=== PATIENT | male | born 1995 | race Caucasian/White ===

== ENCOUNTER 2017-05-27 23:28 | Emergency (ER) | payer MEDICAID ==
--- NOTE | 2017-05-28 00:05 | CPEKG ---
Heart Rate: 95 RR Interval: 632 P-R Interval: 140 QRSD Interval: 102 QT Interval: 356 QTC Interval: 448 P Custar: 80 QRS Custar: 81 T Wave Custar: 46 EKG Severity - BORDERLINE ECG - EKG Impression: SINUS RHYTHM EKG Impression: INFERIOR Q WAVES, PROBABLY NORMAL VARIATION Electronically Signed By: Bhavesh Aguero 28-May-2017 07:17:35
[2017-05-28] MEDS ORDERED: NS 1,000 ML IV ONE (00:20)
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
[2017-05-28 00:30] LABS: % IMMATURE GRANULYOCYTES 0.2 % (0.0-1.1); ABSOLUTE IMMATURE GRANULOCYTES 0.02 10^3/uL (0.00-0.10); ADD DIFF? NO; ADD MORPH? NO; ADD SCAN? NO; ATYPICAL LYMPHOCYTE FLAG 0 (0-99); FRAGMENT RBC FLAG 0 (0-99); HEMATOCRIT 43.1 % (40.0-51.0); HEMOGLOBIN 15.5 g/dL (13.7-17.5); LEFT SHIFT FLG 0 (0-99); LIPEMIA HEMOLYSIS FLAG 90 (0-99); MEAN CELL VOLUME 86.2 fL (81.5-99.8); MEAN PLATELET VOLUME 9.7 fL (8.7-11.7); PLATELET CLUMPS FLAG 0 (0-99); PLATELET COUNT 234 10^3/uL (150-400)
[2017-05-28 01:45] LABS: CHLORIDE 103 mEq/L (97-110); POTASSIUM 3.7 mEq/L (3.5-5.2); SODIUM 141 mEq/L (134-144)
[2017-05-28 04:53] LABS: ANION GAP 14 mEq/L (8-16); CALCIUM 9.7 mg/dL (8.5-10.4); CARBON DIOXIDE 24 mEq/l (22-31); CREATININE 0.8 mg/dL (0.7-1.3); GLOMERULAR FILTRATION RATE > 60; GLUCOSE 105 mg/dL (70-100)
[2017-05-28 05:15] LABS: TROPONIN I < 0.012 ng/mL (0.000-0.034)
[2017-05-28 05:41] VITALS: BP 118/72; PULSE 82; RESP 16; TEMP 97.7; O2SAT 99
== END 2017-05-28 02:30 | disposition home or self-care (01) ==
DX: F15.10 Other stimulant abuse, uncomplicated (principal); F17.200 Nicotine dependence, unspecified, uncomplicated; E86.9 Volume depletion, unspecified
CPT/HCPCS: 82947-QW

== ENCOUNTER 2017-12-11 21:19 | Emergency (ER) | payer MEDICAID ==
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
[2017-12-11 22:48] VITALS: BP 121/74; PULSE 81; RESP 16; TEMP 98.6; O2SAT 98
== END 2017-12-11 22:48 | disposition home or self-care (01) ==
DX: N50.89 Other specified disorders of the male genital organs (principal); F14.10 Cocaine abuse, uncomplicated; F17.200 Nicotine dependence, unspecified, uncomplicated